=== PATIENT | female | born 1940 | race Caucasian/White ===

== ENCOUNTER 2021-03-23 12:39 | Emergency (ER) | payer MEDICARE, SELFPAY ==
--- NOTE | ~2021-03-23 | XR_ITS ---
XR hand LT min 3V DATE: 03/23/2021 13:15 INDICATION: Injury from fall 5 days ago. Pain and swelling of left first digit TECHNIQUE: 3 views COMPARISON: None FINDINGS: Diffuse osteopenia. There is osteoarthritis at the first carpometacarpal joint, distal interphalangeal joint of the secon d digit. No fracture, dislocation, periosteal reaction or bone destruction. IMPRESSION: Osteopenia Osteoarthritis No fracture or dislocation Reviewed, dictated and finalized at location A.
--- NOTE | 2021-03-23 12:43 | ED.UPPEXIN ---
HPI - Extremity Injury (Upper) General Chief Complaint: Extremity Injury, Lower Stated Complaint: Pain and bruising to left Hand Time Seen by Provider: 03/23/21 12:48 Source: patient and RN notes reviewed History of Present Illness HPI narrative: Patient is 89-year-old female who presents the urgent care with complaints of left hand bruising and pain due to fall 5 days ago. Patient states that she fell onto the concrete and caught herself with her hands outward. Patient states that the small abrasions to the hand have been healing well and she has been using bacitracin and ice. Patient states she only has pain with certain range of motion to the left hand. Denies of hitting her head or any other injuries from the fall. No other acute complaints. No acute distress noted. Patient aware of the plan of care. Some parts of this dictation were generated by voice recognition software and may contain typographical and/or grammatical inaccuracies. Related Data Home Medications Medication Instructions Recorded Confirmed latanoprost 0.005 drp EACH EYE HS 03/23/21 03/23/21 Allergies Allergy/AdvReac Type Severity Reaction Status Date / Time alendronate sodium Allergy Unknown Verified 03/23/21 13:01 [From Fosamax] Penicillins Allergy Unknown Verified 03/23/21 13:01 Review of Systems Review of Systems: CONSTITUTIONAL: Denies fever, chills, or sweats. EYES: Denies visual changes, redness, or discharge. ENT: Denies rhinorrhea, congestion, sore throat, or otalgia. CARDIOVASCULAR: Denies chest pain, palpitations, or edema. RESPIRATORY: Denies cough or dyspnea. GASTROINTESTINAL: Denies abdominal pain, nausea, vomiting, or diarrhea. GENITOURINARY: Denies dysuria or hematuria. SKIN: Denies rash or itching. MUSCULOSKELETAL: Reports of left hand pain and bruising NEUROLOGIC: Denies headache, numbness, or weakness. All other systems reviewed are negative, except as documented in HPI. PMFSH Social History Social History Gender identity (if verbalized by the patient): Female Comments At the time of my signature, I reviewed and agree with the nursing past medical, surgical, social, and family history. There is no relevant family history pertinent to the patient complaint. Exam Narrative: GENERAL: This is a well-nourished, well-developed patient, in no apparent distress. HEAD: normocephalic, atraumatic. EYES: PERRL. Sclera clear/white. Vision is grossly intact. EARS: External ears normal NOSE: External nose normal with no obvious nasal discharge, nares without redness, no rhinorrhea. THROAT: Mucous membranes moist NECK: Neck supple CARDIOVASCULAR: Regular rate and rhythm without murmurs, gallops, or rubs. RESPIRATORY: Clear to auscultation. Breath sounds equal bilaterally. No wheezes, rales, or rhonchi. SKIN: 0.5 cm scabbed abrasion noted to the left thumb. Warm, intact with no suspicious lesions or rash, good texture and turgor. NEURO: awake, alert, and oriented to person, place and time. There were no obvious focal neurologic abnormalities. EXTREMITIES: Resolving ecchymosis noted to the thenar eminence of the left hand extending to the left wrist. Range of motion to left upper extremity within normal limits with exacerbated pain on flexion of the left thumb. Positive strong left radial pulse with capillary refill less than 2 seconds. Course Vital Signs Vital signs: Vital Signs Temperature 97.4 F L 03/23/21 12:50 Pulse Rate 98 03/23/21 12:50 Respiratory Rate 18 03/23/21 12:50 Blood Pressure 156/76 H 03/23/21 12:50 Pulse Oximetry 98 03/23/21 12:50 Temperature 97.4 F L 03/23/21 12:50 Pulse Rate 98 03/23/21 12:50 Respiratory Rate 18 03/23/21 12:50 Blood Pressure 156/76 H 03/23/21 12:50 Pulse Oximetry 98 03/23/21 12:50 Reviewed-patient is informed that they may have pre-hypertension or hypertension based on a blood pressure reading in the department. I recommend the patient call the [facility]
[2021-03-23 12:50] VITALS: BP 156/76; PULSE 98; RESP 18; TEMP 36.3; O2SAT 98
== END 2021-03-23 13:29 | disposition home or self-care (01) ==
PROVIDERS: Emergency Provider Nurse Practitioner Family; PCP Family Medicine
DX: S60.222A Contusion of left hand, initial encounter (principal); W19.XXXA Unspecified fall, initial encounter; H26.9 Unspecified cataract
CPT/HCPCS: 73130; 99213; G0463